=== PATIENT | male | born 1980 | race Caucasian/White ===

== ENCOUNTER 2021-03-20 12:46 | Observation (INO) | payer OTHER ==
[~2021-03-20] VITALS: Ht 172.7 cm; Wt 92.0 kg
[~2021-03-20 12:46] MED LIST: DULO1CAP5 PO; HYDR50TA70 PO; LR 1,000 ML IV ONE; TOPI50TA9 PO; ceFAZolin SOD 2 GM in IV 1 EA IV ONE
[2021-03-20] MEDS ORDERED: fentaNYL 100 MCG/2 ML INJECTION (J3010) As Ordered ONE (12:54)
[2021-03-20] MEDS ORDERED: LIDOCAINE 2% 100MG/5ML SDV (FOR ANES.) As Ordered ONE (12:54)
[2021-03-20] MEDS ORDERED: MIDAZOLAM INJ 2MG/2ML VIAL (J2250 PER 1MG) As Ordered ONE ×2 (12:54→13:59)
[2021-03-20] MEDS ORDERED: propofoL 200 MG/20 ML VIAL As Ordered ONE ×2 (12:54→14:28)
[2021-03-20] MEDS ORDERED: LIDOCAINE 1% SDV 30ML VIAL As Ordered ONE (13:58)
[2021-03-20] MEDS ORDERED: BUPIVACAINE HCL 0.25% 30ML VIAL As Ordered ONE (13:58)
[2021-03-20] MEDS ORDERED: ONDANSETRON 4MG/2ML VIAL As Ordered ONE (14:02)
[2021-03-20] MEDS ORDERED: dexameTHASONE 4 MG/ML 1ML VIAL (J1100 PER 1MG) As Ordered ONE (14:02)
[2021-03-20] MEDS ORDERED: ACETAMINOPHEN 1000MG 100ML IV BTL (OFIRMEV) (J0131 PER 10MG) As Ordered ONE (14:15)
[2021-03-20] MEDS ORDERED: HYDR-3713 PO (15:09)
[2021-03-20] MEDS ORDERED: BACT800T5 PO (15:09)
[2021-03-20] MEDS ORDERED: fentaNYL 100 MCG/2 ML INJECTION (J3010) IV PRN (15:20)
[2021-03-20] MEDS ORDERED: LR 1,000 ML IV SCH ×2 (15:20→15:25)
[2021-03-20] MEDS ORDERED: ONDANSETRON 4MG/2ML VIAL IV PRN (15:20)
[2021-03-20] MEDS: oxyCODONE 5MG TAB PO PRN ×2 (15:52→16:28)
[2021-03-20] MEDS ORDERED: KETOROLAC 30 MG/ML 1ML VIAL As Ordered ONE (16:00)
[2021-03-20] MEDS ORDERED: HYDROmorphone 2 MG TAB PO PRN (16:05)
[2021-03-20] MEDS ORDERED: MORPHINE 4 MG/ML 1ML VIAL/SYRINGE (J2270) IV PRN (16:05)
[2021-03-20] MEDS ORDERED: KETOROLAC 30 MG/ML 1ML VIAL IV PRN (16:30)
[2021-03-20 20:30] VITALS: BP 131/86
[2021-03-20] MEDS: BACTRIM 160MG/800MG DS TAB PO SCH (20:36)
[2021-03-20] MEDS: NORCO, ANEXSIA 5/325MG TABLET (HYDROcodone/ACETAMINOPHEN) PO PRN (20:37)
[2021-03-21 00:30] VITALS: BP 133/85
[2021-03-21 04:38] VITALS: BP 131/86
[2021-03-21] MEDS: NORCO, ANEXSIA 5/325MG TABLET (HYDROcodone/ACETAMINOPHEN) PO PRN (06:14)
--- NOTE | 2021-03-21 08:02 | IPNPDOC ---
Date Seen The patient was seen on 03/21/21. Progress Note pt seen and examined avss looks comfortable scrotum with less swelling than expected no problems overnight home today antibiotic and pain med already sent to pharmacy f/u 3-4wk d/w pt VS, I&O, 24H, Fishbone Vital Signs/I&O Vital Signs Date Time Temp Pulse Resp B/P (MAP) Pulse Ox O2 Delivery O2 Flow Rate FiO2 03/21/21 06:44 18 Room Air 03/21/21 04:38 97.9 83 131/86 (101) 97 I&O- Last 24 Hours up to 6 AM 03/21/21 05:59 Intake Total 1570 ml Output Total 825 ml Balance 745 ml DIONNA VANN MD Mar 21, 2021 08:02
[2021-03-21] MEDS: BACTRIM 160MG/800MG DS TAB PO SCH (08:12)
[2021-03-21 10:00] VITALS: BP 114/60
--- NOTE | 2021-03-21 10:22 | ROOPDOC ---
[facility] Report Of Operation Report of Operation DATE OF PROCEDURE: 03/20/21 PREPROCEDURE DIAGNOSES: [Right hydrocele causing pain]. POSTPROCEDURE DIAGNOSES: [Same]. PROCEDURE PERFORMED: [Right hydrocelectomy, right orchidopexy, fulguration of right appendix testis]. SURGEON: [Yuriy Vann MD MANAGER SECONDARY: [None], ANESTHESIA: [General]. ESTIMATED BLOOD LOSS: Approximately [5] mL. COMPLICATIONS: [None]. REMARKS: [40-year-old white male. Right hydrocele causing discomfort. Surgery was arranged. No guarantees were given. Risks were discussed such as infection, bleeding, pain, scarring, swelling, recurrence of hydrocele, injury to normal structures, testis atrophy, risks of anesthesia and others.]. FINDINGS: [See below] SPECIMENS REMOVED: [Right hydrocele sac] PROCEDURE NOTE: . DESCRIPTION OF PROCEDURE: [I met with the patient in the preop area before surgery. Surgery discussed. Informed consent obtained. Patient wished to proceed. Patient brought to the OR room. Surgery done under coverage of an IV antibiotic. Supine position. Well-padded. General anesthesia secured without difficulty. Timeout performed. Prepped and draped in usual sterile fashion. Examination revealed an obvious right hydrocele about the size of a baseball. A transverse incision was made along the right hemiscrotal wall. Incision carried down using cautery. The right testis with its hydrocele was delivered. I emptied the hydrocele of most of its fluid using a 60 cc syringe and 18-gauge needle. Usual straw-colored fluid. Nothing to suggest infection. The hydrocele sac was incised. Most of the hydrocele sac was excised and handed off. Hemostasis was secured using cautery. Also the cut edges of the hydrocele sac were oversewn with a running 2-0 Vicryl. The testis looked and felt fine. The appendix testis was fulgurated. After securing hemostasis an orchidopexy was performed. 2-0 chromic was used. Stitches were placed medial, lateral and inferior. The testis was put back in the scrotum in its normal anatomic position. The dartos was closed with running 2-0 chromic. The skin was closed with running 2-0 chromic using a running vertical mattress stitch. Surgical field cleaned and dried. Dermabond placed. Gauze and scrotal supporter placed. Patient tolerated everything well and left the room in satisfactory condition. Counts were correct.]. DIONNA VANN MD Mar 21, 2021 10:22
== END 2021-03-21 12:58 | disposition home or self-care (01) ==
LOC: M SDC 12:46 → M MSPAV 12:47
PROVIDERS: ADMIT Urology; ATTEND Urology
DX: N43.3 Hydrocele, unspecified (principal)
CPT/HCPCS: 54522; 54640; 55040; 88302; 96374; J0131; J0690; J1100; J1885; J2250; J2270; J2405; J3010